=== PATIENT | male | born 1995 | race Caucasian/White ===

== ENCOUNTER 2020-07-20 07:49 | Emergency (ER) | payer BC ==
--- NOTE | 2020-07-20 08:46 | EDM.PDOC ---
ED HPI GENERAL MEDICAL PROBLEM - General Chief Complaint: Eye Problems Stated Complaint: DEBRIS O IRRITATION IN LEFT EYE Time Seen by Provider: 07/20/20 08:41 Source of Information: Reports: Patient History Limitations: Reports: No Limitations - History of Present Illness INITIAL COMMENTS - FREE TEXT/NARRATIVE: Patient presents with swelling and pain in his left eye. He was sawing wood yesterday without eye protection when a piece hit him in the left eye. He flushed it with copious amounts of water and was seen by Dr. Jacome. He was given eye drops which he has been using. He slept ok last night and thought it was a little better today, but when he started to open and close his eye, it felt like it was scratching. It feels like there is a foreign object in his upper eyelid. He noted increased tearing along with purulent drainage. Also noted eyelid swelling. He has had a corneal abrasion before, but feels like this is different. 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 Cardiovascular History: Reports: Hypertension Respiratory History: Reports: None Gastrointestinal History: Reports: None Genitourinary History: Reports: None Musculoskeletal History: Reports: None Neurological History: Reports: None Psychiatric History: Reports: None Endocrine/Metabolic History: Reports: None Hematologic History: Reports: None Immunologic History: Reports: None Oncologic (Cancer) History: Reports: None Dermatologic History: Reports: None - Infectious Disease History Infectious Disease History: Reports: None - Past Surgical History HEENT Surgical History: Reports: Tonsillectomy, Other (See Below) Other HEENT Surgeries/Procedures: ear tubes Cardiovascular Surgical History: Reports: None Respiratory Surgical History: Reports: None GI Surgical History: Reports: None Male Surgical History: Reports: None Endocrine Surgical History: Reports: None Neurological Surgical History: Reports: None Musculoskeletal Surgical History: Reports: None Social & Family History - Family History Family Medical History: Noncontributory - Tobacco Use Smoking Status *Q: Never Smoker Second Hand Smoke Exposure: No - Caffeine Use Caffeine Use: Reports: Soda - Recreational Drug Use Recreational Drug Use: No ED ROS GENERAL - Review of Systems Review Of Systems: Comprehensive ROS is negative, except as noted in HPI. ED EXAM GENERAL W FULL EYE - Physical Exam Exam: See Below Exam Limited By: No Limitations General Appearance: Alert, WD/WN, No Apparent Distress Eye Exam: Right Eye: Normal Inspection, Left Eye: Conjunctival Injection, Corneal Abrasion, Bilateral Eye: EOMI Eyelids: Right: Normal Appearance, Left: Edema, Erythema, Lid Everted for Exam (no foreign body identified with slit lamp) Conjunctiva & Sclera: Left: Discharge, Injected Pupils: Normal Accommodation Respiratory/Chest: No Respiratory Distress, Normal Breath Sounds, No Accessory Muscle Use Cardiovascular: Normal Peripheral Pulses, Regular Rate, Rhythm Neurological: Alert, Oriented Psychiatric: Normal Affect, Normal Mood Skin Exam: Warm, Dry, Intact, Normal Color, No Rash Course - Vital Signs Last Recorded V/S: Last Vital Signs Temp 97.6 F 07/20/20 08:02 Pulse 65 07/20/20 08:02 Resp 18 07/20/20 08:02 BP 142/88 H 07/20/20 08:02 Pulse Ox 99 07/20/20 08:02 Departure - Departure Time of Disposition: 08:41 Disposition: Home, Self-Care 01 Condition: Good Clinical Impression: Corneal abrasion Qualifiers: Encounter type: initial encounter Laterality: left Qualified Code(s): S05.02XA - Injury of conjunctiva and corneal abrasion without foreign body, left eye, initial encounter - Discharge Information *PRESCRIPTION DRUG MONITORING PROGRAM REVIEWED*: Not Applicable *COPY OF PRESCRIPTION DRUG MONITORING REPORT IN PATIENT AMY: Not Applicable Instructions: Corneal Abrasion, [id number] Forms: ED Department Discharge Sepsis Event Note (ED) - Evaluation Sepsis Screening Result: No Definite Risk - Focused Exam Vital Signs: Vital Signs Temp Pulse Resp BP Pulse Ox 07/20/20 08:02 97.6 F 65 18 142/88 H 99 - Problem List & Annotations (1) Eye injury SNOMED Code(s): 585118991 Code(s): S05.90XA - UNSPECIFIED INJURY OF UNSPECIFIED EYE AND ORBIT, INIT ENCNTR Status: Acute - Problem List Review Problem List Initiated/Reviewed/Updated: Yes - Assessment/Plan Assessment:: 24 yo male with eye injury yesterday and increased swelling today Plan: Reassured patient there was no foreign body identified on todays exam, but if symptoms persists, to seek out an eye doctor for a more detailed exam. continue eye drops as prescribed by Dr. Jacome
== END 2020-07-20 09:08 | disposition home or self-care (01) ==
LOC: DL.ED 07:49
DX: S05.02XA Injury of conjunctiva and corneal abrasion without foreign body, left eye, initial encounter (principal); I10 Essential (primary) hypertension; X58.XXXA Exposure to other specified factors, initial encounter
CPT/HCPCS: 99283

== ENCOUNTER 2024-10-29 05:09 | Emergency (ER) | payer BC, OTHER ==
[2024-10-29] MEDS: GI Cocktail Oral Solution 30 ML PO ONE (05:35)
[2024-10-29 06:00] LABS: BASOPHILS PERCENT AUTO 0.1 % (0.0-1.0); EOSINOPHILS PERCENT AUTO 2.5 % (1.0-3.0); HEMATOCRIT 46.5 % (40.0-54.0); HEMOGLOBIN 15.2 g/dL (14.0-18.0); LYMPHOCYTES PERCENT AUTO 25.4 % (20.5-50.1); MEAN CORPUSCULAR HEMOGLOBIN 28.6 pg (27.0-34.0); MEAN CORPUSCULAR HGB CONC 32.7 g/dL (33.0-35.0); MEAN CORPUSCULAR VOLUME 87.4 fL (80-100); PLATELET COUNT,PLT 179 10^3/uL (150-450); RED BLOOD CELL COUNT 5.32 10^6/uL (4.6-6.2); WHITE BLOOD CELL COUNT,WBC 8.1 10^3/uL (5.0-10.0)
[2024-10-29 06:21] LABS: PROTHROMBIN TIME 10.3 SEC (9.0-12.0); PTT,PARTIAL THROMBOPLSTIN TIME 24.3 SEC (22.0-34.0)
[2024-10-29 06:24] LABS: A/G RATIO 1.1; ANION GAP 9.9 mEq/L (7-13); BILIRUBIN TOTAL 0.6 mg/dL (0.2-1.0); BUN/CREATININE RATIO 20.2 (No establ ref range); CALCIUM 9.2 mg/dL (8.5-10.1); CREATININE 0.99 mg/dL (0.70-1.30); EST CRCL DRUG DOSING (CG) 119.75 mL/min; MAGNESIUM 1.9 mg/dL (1.8-2.4); POTASSIUM,K 3.9 mmol/L (3.5-5.1); PROTEIN TOTAL,TP 7.5 g/dL (6.4-8.2)
== END 2024-10-29 05:44 | disposition left against medical advice (07) ==
LOC: DL.ED 05:09
DX: R07.89 Other chest pain (principal); I10 Essential (primary) hypertension; Z86.16 Personal history of COVID-19; Z79.899 Other long term (current) drug therapy
CPT/HCPCS: 36415; 80053; 83690; 83735; 84484; 85025; 85379; 85610; 85730; 93005; 99285; A9270; 93010; 99284

== ENCOUNTER 2025-01-06 22:23 | Emergency (ER) | payer BC | END 2025-01-06 23:00 | LOC: DL.ED 22:23 | DX: Z53.21 Procedure and treatment not carried out due to patient leaving prior to being seen by health care provider (principal) ==

== ENCOUNTER 2025-01-07 20:43 | Emergency (ER) | payer BC ==
[2025-01-07] MEDS ORDERED: Sodium Chloride 0.9% 10 ML Syringe FLUSH PRN (20:54)
[2025-01-07 21:06] LABS: BASOPHILS PERCENT AUTO 0.1 % (0.0-1.0); EOSINOPHILS PERCENT AUTO 0.7 % (1.0-3.0); HEMATOCRIT 44.8 % (40.0-54.0); HEMOGLOBIN 15.1 g/dL (14.0-18.0); LYMPHOCYTES PERCENT AUTO 12.4 % (20.5-50.1); MEAN CORPUSCULAR HEMOGLOBIN 29.2 pg (27.0-34.0); MEAN CORPUSCULAR HGB CONC 33.7 g/dL (33.0-35.0); MEAN CORPUSCULAR VOLUME 86.5 fL (80-100); MONOCYTES PERCENT AUTO 13.1 % (2-8); NEUTROPHILS PERCENT AUTO 73.7 % (42.2-75.2); PLATELET COUNT,PLT 141 10^3/uL (150-450); RED BLOOD CELL COUNT 5.18 10^6/uL (4.6-6.2); WHITE BLOOD CELL COUNT,WBC 7.6 10^3/uL (5.0-10.0)
[2025-01-07] MEDS: Ketorolac 30 MG/ML SDV IVPUSH ONE (21:13)
[2025-01-07] MEDS: Sodium Chloride 0.9% 1,000 ML IV ONE (21:13)
[2025-01-07 21:25] LABS: A/G RATIO 1.1; ALBUMIN 4.1 g/dL (3.4-5.0); ANION GAP 10.5 mEq/L (7-13); BILIRUBIN TOTAL 0.6 mg/dL (0.2-1.0); BUN/CREATININE RATIO 11.7 (No establ ref range); C-REACTIVE PROTEIN 1.2 ng/dL (<=0.50); CREATININE 1.11 mg/dL (0.70-1.30); EST CRCL DRUG DOSING (CG) 106.81 mL/min; MAGNESIUM 1.8 mg/dL (1.8-2.4); POTASSIUM,K 3.5 mmol/L (3.5-5.1); PROTEIN TOTAL,TP 7.8 g/dL (6.4-8.2)
[2025-01-07 21:31] LABS: LACTIC ACID 0.9 mmol/L (0.4-2.0)
== END 2025-01-07 22:04 | disposition home or self-care (01) ==
LOC: DL.ED 20:43
DX: B34.9 Viral infection, unspecified (principal); I10 Essential (primary) hypertension; Z86.16 Personal history of COVID-19
CPT/HCPCS: 36415; 80053; 82550; 83605; 83735; 85025; 86140; 96361; 96374; 99282; 99284; J1885; J7030

== ENCOUNTER 2025-10-07 09:18 | Emergency (ER) | payer BC ==
[2025-10-07] MEDS ORDERED: Sodium Chloride 0.9% 10 ML Syringe FLUSH PRN (09:45)
[2025-10-07] MEDS: Ondansetron 4 MG/2 ML SDV IVPUSH ONE (09:50)
[2025-10-07 09:51] LABS: BASOPHILS PERCENT AUTO 0.2 % (0.0-1.0); EOSINOPHILS PERCENT AUTO 0.3 % (1.0-3.0); LYMPHOCYTES PERCENT AUTO 16.5 % (20.5-50.1); MONOCYTES PERCENT AUTO 12.1 % (2-8); NEUTROPHILS PERCENT AUTO 70.9 % (42.2-75.2); PLATELET COUNT,PLT 160 10^3/uL (150-450); RED BLOOD CELL COUNT 5.03 10^6/uL (4.6-6.2); WHITE BLOOD CELL COUNT,WBC 9.4 10^3/uL (5.0-10.0)
[2025-10-07] MEDS: Ketorolac 30 MG/ML SDV IVPUSH ONE (09:52)
[2025-10-07] MEDS: diphenhydrAMINE 50 MG/ML SDV IVPUSH ONE (09:54)
[2025-10-07 10:01] LABS: A/G RATIO 1.0; ALANINE AMINOTRANSFERASE,ALT 68.0 U/L (16-63); ASPARTATE AMNIOTRANSFERASE,AST 21.0 U/L (15-37); BILIRUBIN TOTAL 0.8 mg/dL (0.2-1.0); BLOOD UREA NITROGEN,BUN 14.0 mg/dL (7-18); CARBON DIOXIDE,CO2 27.0 mmol/L (21-32); CHLORIDE,CL 103.0 mmol/L (98-107); CREATININE 0.89 mg/dL (0.70-1.30); EST CRCL DRUG DOSING (CG) 132.0 mL/min; GLUCOSE RANDOM 105.0 mg/dL (70-99); POTASSIUM,K 3.7 mmol/L (3.5-5.1); PROTEIN TOTAL,TP 7.9 g/dL (6.4-8.2); SODIUM,NA 139.0 mmol/L (136-145)
[2025-10-07 10:03] LABS: ESTIMATED GFR 118.0 mL/min (>=60)
== END 2025-10-07 11:33 | disposition home or self-care (01) ==
LOC: DL.ED 09:18
DX: G43.909 Migraine, unspecified, not intractable, without status migrainosus (principal); J01.00 Acute maxillary sinusitis, unspecified; I10 Essential (primary) hypertension; Z79.899 Other long term (current) drug therapy; Z86.16 Personal history of COVID-19
CPT/HCPCS: 36415; 80053; 85025; 96361; 96374; 96375; 99283; 99284; J0696; J1200; J1885; J2405; J7030